=== PATIENT | male | born 1970 ===

== ENCOUNTER 2025-05-02 06:17 | Day surgery (SDC) | payer OTHER, SELFPAY | END 2025-05-02 08:26 | disposition home or self-care (01) | LOC: GI 06:17 | PROVIDERS: ATTENDING PHYSICIAN Internal Medicine Gastroenterology | DX: Z12.11 Encounter for screening for malignant neoplasm of colon (principal); K64.8 Other hemorrhoids; Z80.0 Family history of malignant neoplasm of digestive organs | CPT/HCPCS: G0105 ==